=== PATIENT | female | born 1955 | race Two or more races ===

== ENCOUNTER → 2016-06-07 | Outpatient (REF) | payer OTHER ==
[2016-06-08 11:52] LABS: EOS # 0.2 K/mm3 (0.0-0.50); EOS % 4.1 % (0.0-3.0); LARGE UNSTAINED CELL % 0.8 % (0.0-4.0); LYMPH # 0.4 K/mm3 (1.5-4.5); LYMPH % 7.5 % (24.0-44.0); MEAN CORPUSCULAR HEMOGLOBIN 30.5 pg (27.0-33.0); MEAN CORPUSCULAR HGB CONC 33.5 g/dl (32.0-36.5); MEAN CORPUSCULAR VOLUME 90.9 fl (80.0-96.0); MONO # 0.2 K/mm3 (0.0-0.8); NEUTROPHILS # 4.2 K/mm3 (1.8-7.7); NEUTROPHILS % 83.6 % (36.0-66.0); PLATELET COUNT, AUTOMATED 252 k/mm3 (150-450); RED CELL DISTRIBUTION WIDTH 12.4 % (11.5-14.5)
[2016-06-08 12:05] LABS: ALBUMIN 3.4 GM/DL (3.2-5.2); ALBUMIN/GLOBULIN RATIO 1.13 (1.00-1.93); ALKALINE PHOSPHATASE 123 U/L (45-117); ALT/SGPT 28 U/L (12-78); ANION GAP 7 MEQ/L (8-16); AST/SGOT 20 U/L (15-37); BILIRUBIN,TOTAL 0.4 MG/DL (0.2-1.0); BLOOD UREA NITROGEN 15 MG/DL (7-18); CALCIUM LEVEL 8.8 MG/DL (8.5-10.1); CARBON DIOXIDE LEVEL 28 MEQ/L (21-32); CHLORIDE LEVEL 108 MEQ/L (98-107); CREATININE FOR GFR 0.64 MG/DL (0.55-1.02); GLOMERULAR FILTRATION RATE > 60.0 (>51); GLUCOSE, FASTING 90 MG/DL (70-105); POTASSIUM SERUM 4.2 MEQ/L (3.5-5.1); SODIUM LEVEL 143 MEQ/L (136-145); THYROXINE (T4) 11.6 UG/DL (4.5-12.0); TOTAL PROTEIN 6.4 GM/DL (6.4-8.2)
== END ==
LOC: M SFHCCLAY 15:26
PROVIDERS: ATTEND Family Medicine
DX: M25.50 Pain in unspecified joint (principal); Z13.0 Encounter for screening for diseases of the blood and blood-forming organs and certain disorders involving the immune mechanism; Z13.220 Encounter for screening for lipoid disorders; E03.9 Hypothyroidism, unspecified; E55.9 Vitamin D deficiency, unspecified

== ENCOUNTER → 2016-10-28 | Outpatient (REF) | payer OTHER ==
[2016-10-28 14:07] LABS: MEAN CORPUSCULAR HGB CONC 33.4 g/dl (32.0-36.5); MEAN CORPUSCULAR VOLUME 89.6 fl (80.0-96.0); RED CELL DISTRIBUTION WIDTH 13.6 % (11.5-14.5)
[2016-10-28 14:21] LABS: ANION GAP 7 MEQ/L (8-16); BLOOD UREA NITROGEN 15 MG/DL (7-18); CARBON DIOXIDE LEVEL 30 MEQ/L (21-32); CHLORIDE LEVEL 105 MEQ/L (98-107); CREATININE FOR GFR 0.73 MG/DL (0.55-1.02); GLOMERULAR FILTRATION RATE > 60.0 (>51); GLUCOSE, FASTING 82 MG/DL (70-105); POTASSIUM SERUM 4.5 MEQ/L (3.5-5.1); SODIUM LEVEL 142 MEQ/L (136-145)
== END ==
LOC: M LAB REF 08:26
PROVIDERS: ATTEND Orthopaedic Surgery Sports Medicine
DX: M17.0 Bilateral primary osteoarthritis of knee (principal)

== ENCOUNTER → 2017-01-11 | Outpatient (REF) ==
--- NOTE | 2017-01-11 10:38 | REP ---
Clinical: Pain. Technique: Internal rotation, external rotation, and Y view of the right shoulder. Findings: Mild cortical irregularity at the acromioclavicular joint is appreciated along with subtle irregularity and blunting along the inferior portion of the glenoid rim. Decrease subacromial space to approximately 5 mm is suggested on external rotation view. No acute fracture dislocation. Impression: Mild arthritic degenerative changes. Signed by Kwame Rick MD 01/11/2017 10:29 A
--- NOTE | 2017-01-11 10:47 | REP ---
Clinical: Pain and disability. Technique: AP, lateral, bilateral oblique views of the left ankle. Comparison: None. Findings: Postsurgical and post traumatic arthritic degenerative changes are noted throughout the ankle and mid/hind foot. Findings include joint space narrowing. Subchondral sclerosis/irregularities, osteophyte formation and spurring. Surrounding soft tissue swelling is appreciated. Underlying age-related osteopenia and degenerative changes at the metatarsophalangeal joints also identified. No obvious acute fracture or dislocation. Impression: Moderate to advanced arthritic degenerative changes. Signed by Kwame Rick MD 01/11/2017 10:38 A
== END ==
LOC: M SMT 09:40
PROVIDERS: ATTEND Internal Medicine
DX: Z02.71 Encounter for disability determination (principal)

== ENCOUNTER → 2017-02-06 | Outpatient (REF) | payer OTHER ==
[2017-02-06 17:48] LABS: THYROXINE (T4) 10.3 UG/DL (4.5-12.0)
[2017-02-06 17:56] LABS: FOLATE 4.6 NG/ML (>5.4)
[2017-02-06 18:06] LABS: BASO # 0.1 10^3/uL (0.0-0.2); BASO % 1.6 % (0.0-1.0); EOS # 0.4 10^3/uL (0.0-0.50); EOS % 7.6 % (0.0-3.0); IMMATURE GRANULOCYTE % 0.6 % (0-0); LYMPH # 1.6 10^3/uL (1.5-4.5); LYMPH % 31.7 % (24.0-44.0); MEAN CORPUSCULAR HEMOGLOBIN 27.6 pg (27.0-33.0); MEAN CORPUSCULAR HGB CONC 31.9 g/dl (32.0-36.5); MEAN CORPUSCULAR VOLUME 86.5 fl (80.0-96.0); MONO # 0.3 10^3/uL (0.0-0.8); MONO % 6.7 % (0.0-5.0); NEUTROPHILS # 2.5 10^3/uL (1.8-7.7); NEUTROPHILS % 51.8 % (36.0-66.0); PLATELET COUNT, AUTOMATED 312 10^3/uL (150-450); RED CELL DISTRIBUTION WIDTH 13.2 % (11.5-14.5); WHITE BLOOD COUNT 4.9 10^3/uL (4.0-10.0)
== END ==
LOC: M SFHCCLAY 13:12
PROVIDERS: ATTEND Family Medicine
DX: D64.9 Anemia, unspecified (principal); E03.9 Hypothyroidism, unspecified; E55.9 Vitamin D deficiency, unspecified

== ENCOUNTER → 2017-06-17 | Outpatient (CLI) | payer OTHER | LOC: M RAD 10:22 | DX: H92.02 Otalgia, left ear (principal) | CPT/HCPCS: 70480 ==

== ENCOUNTER → 2017-07-28 | Outpatient (REF) | payer OTHER | LOC: M SFHCCLAY 09:19 | DX: E03.9 Hypothyroidism, unspecified (principal) ==

== ENCOUNTER → 2017-11-09 | Outpatient (REF) | payer OTHER ==
[2017-11-09 15:36] LABS: ALBUMIN 3.2 GM/DL (3.2-5.2); ALBUMIN/GLOBULIN RATIO 1.03 (1.00-1.93); ALKALINE PHOSPHATASE 170 U/L (45-117); ALT/SGPT 29 U/L (12-78); ANION GAP 5 MEQ/L (8-16); AST/SGOT 18 U/L (7-37); BILIRUBIN,TOTAL 0.3 MG/DL (0.2-1.0); BLOOD UREA NITROGEN 17 MG/DL (7-18); CALCIUM LEVEL 8.9 MG/DL (8.8-10.2); CARBON DIOXIDE LEVEL 30 MEQ/L (21-32); CHLORIDE LEVEL 108 MEQ/L (98-107); CHOLESTEROL LEVEL 166 MG/DL (<200); CHOLESTEROL RISK RATIO 2.721 (<5); CREATININE FOR GFR 0.77 MG/DL (0.55-1.30); GLOMERULAR FILTRATION RATE > 60.0 (>45); GLUCOSE, FASTING 80 MG/DL (70-100); HDL CHOLESTEROL 61 MG/DL (>40); LDL CHOLESTEROL 86 MG/DL (<100); NON-HDL-C 105 MG/DL; POTASSIUM SERUM 4.3 MEQ/L (3.5-5.1); SODIUM LEVEL 143 MEQ/L (136-145); THYROID STIMULATING HORMONE 0.803 uIU/ML (0.358-3.740); TOTAL PROTEIN 6.3 GM/DL (6.4-8.2); TRIGLYCERIDES LEVEL 97 MG/DL (<150)
== END ==
LOC: M SFHCCLAY 08:37
DX: E03.9 Hypothyroidism, unspecified (principal); Z13.220 Encounter for screening for lipoid disorders
CPT/HCPCS: 84443

== ENCOUNTER 2018-01-28 11:59 | Emergency (ER) | payer OTHER | END 2018-01-28 12:55 | disposition home or self-care (01) | LOC: M ED 11:59 | DX: M25.562 Pain in left knee (principal); Z96.652 Presence of left artificial knee joint; K21.9 Gastro-esophageal reflux disease without esophagitis; Z79.899 Other long term (current) drug therapy | CPT/HCPCS: 73564 ==

== ENCOUNTER → 2018-03-14 | Outpatient (CLI) | payer OTHER ==
[~2018-03-14] MED LIST: ALPR0.5T3 PO; DULO60CA35 PO; ESCI10TA2 PO; FOLI400T PO; GASTROGRAFIN SOLUTION 30ML (Q9963) As Ordered ONE; IBUP-1022 PO; IRON65TA PO; ISOVUE-370 76% 100ML VIAL (Q9967) As Ordered ONE; LEVO125T4 PO; RANI-280 PO; VITA50005 PO; ZOLP10TA2 PO
--- NOTE | 2018-03-15 15:05 | REP ---
Clinical: Epigastric pain. Technique: Axial contrast enhanced images of the abdomen using oral (per protocol) and 100 ml Isovue 370 intravenous contrast material with coronal and sagittal re-formations. Comparison: None. Findings: Lung bases demonstrate mild scattered chronic-appearing changes along with 3 mm and 5.5 mm noncalcified subpleural nodules in the visualized right upper lobe (images 1-3). Visualized portions of the heart and pericardium appear normal. Fatty infiltration to the liver noted without focal hepatic lesion. Evidence for prior cholecystectomy. Spleen, pancreas, bilateral adrenal glands and kidneys are normal. Visualized enteric system is without obstruction or acute inflammatory process. 1 cm fat containing periumbilical hernia noted. No ascites. No adenopathy. No free air. Visualized abdominal aorta and vasculature appears normal and without aneurysm or dissection. Musculoskeletal structures demonstrate age-related degenerative changes. Impression: 1. Two noncalcified subpleural nodules in the visualized right upper lobe warrants contrast enhanced chest CT for follow-up. 2. 1 cm fat containing periumbilical hernia. 3. Hepatic steatosis. Electronically Signed by Kwame Rick MD 03/15/2018 02:57 P
== END ==
LOC: M RAD 08:55
PROVIDERS: ATTEND Family Medicine
DX: R10.13 Epigastric pain (principal); R91.8 Other nonspecific abnormal finding of lung field; K42.9 Umbilical hernia without obstruction or gangrene; K76.0 Fatty (change of) liver, not elsewhere classified
CPT/HCPCS: 74160; Q9963; Q9967

== ENCOUNTER → 2018-03-22 | Outpatient (CLI) | payer OTHER ==
[~2018-03-22] MED LIST changes: -GASTROGRAFIN SOLUTION 30ML (Q9963) As Ordered ONE
--- NOTE | 2018-03-22 22:20 | REP ---
Clinical: Pulmonary nodule. Technique: Axial contrast enhanced images from the thoracic inlet to the upper abdomen with coronal and sagittal re-formations using 100 ml Isovue 370 intravenous contrast material. Findings: 6.5 mm and 2 mm noncalcified nodules in the subpleural right upper lobe (images 47, 49) are identified and remain stable as compared to abdominal CT dated 03/14/2018. Remainder of lung anaya are relatively well aerated and without further consolidation, nodule or mass lesion. No pleural effusion. No pneumothorax. Tracheobronchial tree is patent. Mediastinum demonstrates normal thoracic aorta, pulmonary vasculature and heart/pericardium. No significant adenopathy. Limited evaluation of the upper abdomen demonstrates hepatic steatosis and normal bilateral adrenal glands along with prior cholecystectomy. Impression: 2 mm and 6.5 mm subpleural right upper lobe nodules. No further abnormality appreciated. Consider 6 to 9 month follow-up evaluation. Electronically Signed by Kwame Rick MD 03/22/2018 10:12 P
== END ==
LOC: M RAD 15:48
PROVIDERS: ATTEND Family Medicine
DX: R91.8 Other nonspecific abnormal finding of lung field (principal)
CPT/HCPCS: 71260; Q9967

== ENCOUNTER → 2019-02-28 | Outpatient (REF) | payer OTHER ==
[~2019-02-28] MED LIST changes: -ISOVUE-370 76% 100ML VIAL (Q9967) As Ordered ONE
[2019-02-28 11:49] LABS: BASO # 0.1 10^3/uL (0.0-0.2); BASO % 1.8 % (0.0-1.0); EOS # 0.2 10^3/uL (0.0-0.5); EOS % 4.3 % (0.0-3.0); HEMATOCRIT 47.1 % (36.0-47.0); HEMOGLOBIN 14.8 g/dl (12.0-15.5); LYMPH # 1.6 10^3/uL (1.5-5.0); LYMPH % 36.5 % (24.0-44.0); MEAN CORPUSCULAR HEMOGLOBIN 27.8 pg (27.0-33.0); MEAN CORPUSCULAR HGB CONC 31.4 g/dl (32.0-36.5); MEAN CORPUSCULAR VOLUME 88.4 fl (80.0-96.0); MONO # 0.3 10^3/uL (0.0-0.8); MONO % 7.6 % (0.0-5.0); NEUTROPHILS # 2.2 10^3/uL (1.5-8.5); NEUTROPHILS % 48.9 % (36.0-66.0); PLATELET COUNT, AUTOMATED 255 10^3/uL (150-450); RED BLOOD COUNT 5.33 10^6/uL (4.00-5.40); WHITE BLOOD COUNT 4.5 10^3/uL (4.0-10.0)
[2019-02-28 12:09] LABS: ALBUMIN 3.2 GM/DL (3.2-5.2); ALT/SGPT 22 U/L (12-78); BILIRUBIN,TOTAL 0.3 MG/DL (0.2-1.0); BLOOD UREA NITROGEN 17 MG/DL (7-18); CARBON DIOXIDE LEVEL 27 MEQ/L (21-32); CHLORIDE LEVEL 109 MEQ/L (98-107); CREATININE FOR GFR 0.79 MG/DL (0.55-1.30); GLOMERULAR FILTRATION RATE > 60.0 (>45); GLUCOSE, FASTING 98 MG/DL (70-100); IRON (FE) 54 UG/DL (50-170); POTASSIUM SERUM 4.2 MEQ/L (3.5-5.1); SODIUM LEVEL 144 MEQ/L (136-145); THYROID STIMULATING HORMONE 0.008 uIU/ML (0.358-3.740); TOTAL PROTEIN 6.4 GM/DL (6.4-8.2)
== END ==
LOC: M SFHCCLAY 07:37
PROVIDERS: ATTEND Family Medicine
DX: D64.9 Anemia, unspecified (principal); E03.9 Hypothyroidism, unspecified; R73.01 Impaired fasting glucose

== ENCOUNTER → 2019-03-08 | Outpatient (CLI) | payer OTHER ==
--- NOTE | 2019-03-08 19:02 | REP ---
CT chest without contrast: History: Pulmonary nodule. Comparison chest CT study is from March 22, 2018. CT findings: There are two nodules near each other in the periphery of the right upper lobe anteriorly. These are displayed on today's series 201 axial slice #47 and 45. The larger of these measures 6 mm. It is felt to be unchanged. The smaller is unchanged as well. There is a subpleural nodule in the posterior aspect of the right apex which is visible in retrospect on the prior study and more conspicuous today because of placement. It measures only 3 mm in diameter and is felt to be unchanged as well. No other pulmonary opacity is appreciated. No hilar or mediastinal mass or adenopathy is observed. No adrenal lesion is seen. The gallbladder is surgically absent with clips in the gallbladder fossa. No pleural or pericardial effusion is seen. No bony lesion is seen. Impression: Stable right upper lobe pulmonary nodules unchanged from March 22, 2018. The largest is 6 mm in diameter. A repeat CT study in 1 year with document 2-year stability and should be considered. Electronically Signed by César Laguerre MD 03/09/2019 05:37 A
== END ==
LOC: M RAD 13:55
PROVIDERS: ATTEND Family Medicine
DX: R91.8 Other nonspecific abnormal finding of lung field (principal)

== ENCOUNTER → 2019-11-25 | Outpatient (REF) | payer MEDICARE ==
[2019-11-25 18:17] LABS: THYROID STIMULATING HORMONE < 0.005 uIU/ML (0.358-3.740)
== END ==
LOC: M SFHCCLAY 16:21
PROVIDERS: ATTEND Family Medicine
DX: E03.9 Hypothyroidism, unspecified (principal)

== ENCOUNTER → 2020-05-21 | Outpatient (REF) | payer MEDICARE ==
[~2020-05-21] MED LIST changes: +ESCI10TA16 PO; -ESCI10TA2 PO; -FOLI400T PO; +FOLI400T13 PO
[2020-05-21 16:13] LABS: BASO # 0.1 10^3/uL (0.0-0.2); BASO % 1.9 % (0.0-1.0); EOS # 0.2 10^3/uL (0.0-0.5); EOS % 2.8 % (0.0-3.0); HEMATOCRIT 46.5 % (36.0-47.0); HEMOGLOBIN 15.1 g/dl (12.0-15.5); LYMPH # 1.7 10^3/uL (1.5-5.0); LYMPH % 31.9 % (24.0-44.0); MEAN CORPUSCULAR HEMOGLOBIN 28.3 pg (27.0-33.0); MEAN CORPUSCULAR HGB CONC 32.5 g/dl (32.0-36.5); MEAN CORPUSCULAR VOLUME 87.2 fl (80.0-96.0); MONO # 0.3 10^3/uL (0.0-0.8); MONO % 6.3 % (2.0-8.0); NEUTROPHILS % 56.7 % (36.0-66.0); PLATELET COUNT, AUTOMATED 277 10^3/uL (150-450); RED BLOOD COUNT 5.33 10^6/uL (4.00-5.40); WHITE BLOOD COUNT 5.4 10^3/uL (4.0-10.0)
[2020-05-21 16:32] LABS: HEMOGLOBIN A1c 4.9 %
[2020-05-21 16:51] LABS: ALBUMIN 3.3 GM/DL (3.2-5.2); ALT/SGPT 29 U/L (12-78); BILIRUBIN,TOTAL 0.5 MG/DL (0.2-1.0); BLOOD UREA NITROGEN 12 MG/DL (7-18); CALCIUM LEVEL 9.2 MG/DL (8.8-10.2); CARBON DIOXIDE LEVEL 29 MEQ/L (21-32); CHLORIDE LEVEL 106 MEQ/L (98-107); GLOMERULAR FILTRATION RATE > 60.0 (>45); GLUCOSE, FASTING 89 MG/DL (70-100); MAGNESIUM LEVEL 2.3 MG/DL (1.8-2.4); POTASSIUM SERUM 4.8 MEQ/L (3.5-5.1); SODIUM LEVEL 140 MEQ/L (136-145); THYROID STIMULATING HORMONE < 0.005 uIU/ML (0.358-3.740); THYROXINE (T4) 20.8 UG/DL (4.5-12.0); TOTAL PROTEIN 6.2 GM/DL (6.4-8.2)
[2020-05-21 16:54] LABS: TOTAL T3 129.5 NG/DL (60.0-181.0)
== END ==
LOC: M SFHCCLAY 09:21
PROVIDERS: ATTEND Family Medicine
DX: E03.9 Hypothyroidism, unspecified (principal); R73.01 Impaired fasting glucose; D64.9 Anemia, unspecified; K21.9 Gastro-esophageal reflux disease without esophagitis
CPT/HCPCS: 80053; 83036; 83735; 84436; 84443; 84480; 85025; G0463

== ENCOUNTER → 2020-06-03 | Outpatient (CLI) | payer MEDICARE ==
--- NOTE | 2020-06-03 16:40 | REP ---
INDICATION: PULMONARY NODULE. COMPARISON: Chest CT studies dated 03/22/2018 and 03/08/2019. TECHNIQUE: Chest CT without IV contrast. FINDINGS: There is a 3 mm lung nodule posteromedially in the right upper lobe on image 27, unchanged from both prior studies. There is a 2 mm lung nodule anterolaterally in the right upper lobe on image 45, unchanged from both prior studies. There is a 6 mm pleural-based lung nodule anterior laterally in the right upper lobe on image 47, unchanged from both prior studies. There are no new lung nodules. There are no enlarging lung nodules. There are no infiltrates or pleural effusions. There is no mediastinal or axillary lymphadenopathy. In the absence of IV contrast the study is insensitive for hilar adenopathy. The unenhanced thoracic aorta is unremarkable. Cardiac size normal. No pericardial effusion. Within the visualized upper abdomen there is no adrenal nodule or mass. There are surgical clips in the gallbladder fossa. IMPRESSION: There are 3 stable lung nodules as described. There are no new lung nodules. There are no enlarging lung nodules. No adenopathy, infiltrate or effusion. Cholecystectomy. <Electronically signed by Ok Colindres > 06/03/20 2163
== END ==
LOC: M RAD 15:29
PROVIDERS: ATTEND Family Medicine
DX: R91.1 Solitary pulmonary nodule (principal)

== ENCOUNTER → 2021-05-25 | Outpatient (REF) | payer MEDICARE ==
[2021-05-25 16:36] LABS: BASO # 0.1 10^3/uL (0.0-0.2); BASO % 1.1 % (0.0-1.0); EOS # 0.1 10^3/uL (0.0-0.5); EOS % 1.7 % (0.0-3.0); HEMATOCRIT 48.2 % (36.0-47.0); HEMOGLOBIN 16.1 g/dl (12.0-15.5); LYMPH # 1.7 10^3/uL (1.5-5.0); LYMPH % 26.2 % (24.0-44.0); MEAN CORPUSCULAR HEMOGLOBIN 28.8 pg (27.0-33.0); MEAN CORPUSCULAR HGB CONC 33.4 g/dl (32.0-36.5); MEAN CORPUSCULAR VOLUME 86.2 fl (80.0-96.0); MONO # 0.4 10^3/uL (0.0-0.8); MONO % 5.6 % (2.0-8.0); NEUTROPHILS # 4.3 10^3/uL (1.5-8.5); NEUTROPHILS % 64.8 % (36.0-66.0); PLATELET COUNT, AUTOMATED 300 10^3/uL (150-450); RED BLOOD COUNT 5.59 10^6/uL (4.00-5.40); WHITE BLOOD COUNT 6.6 10^3/uL (4.0-10.0)
[2021-05-25 17:21] LABS: ALBUMIN 3.5 GM/DL (3.2-5.2); ALT/SGPT 43 U/L (12-78); BILIRUBIN,TOTAL 0.7 MG/DL (0.2-1.0); BLOOD UREA NITROGEN 13 MG/DL (7-18); CALCIUM LEVEL 9.3 MG/DL (8.8-10.2); CARBON DIOXIDE LEVEL 28 MEQ/L (21-32); CHLORIDE LEVEL 107 MEQ/L (98-107); CHOLESTEROL LEVEL 164 MG/DL (<200); CHOLESTEROL RISK RATIO 2.411 (<5); CREATININE FOR GFR 0.75 MG/DL (0.55-1.30); GLOMERULAR FILTRATION RATE > 60.0 (>45); GLUCOSE, FASTING 94 MG/DL (70-100); HDL CHOLESTEROL 68 MG/DL (>40); IRON (FE) 126 UG/DL (50-170); LDL CHOLESTEROL 81 MG/DL (<100); MAGNESIUM LEVEL 2.2 MG/DL (1.8-2.4); NON-HDL-C 96 MG/DL; POTASSIUM SERUM 4.8 MEQ/L (3.5-5.1); SODIUM LEVEL 142 MEQ/L (136-145); THYROID STIMULATING HORMONE < 0.005 uIU/ML (0.358-3.740); TOTAL PROTEIN 6.5 GM/DL (6.4-8.2); TRIGLYCERIDES LEVEL 75 MG/DL (<150)
== END ==
LOC: M SFHCCLAY 11:02
PROVIDERS: ATTEND Family Medicine
DX: E03.9 Hypothyroidism, unspecified (principal); K21.9 Gastro-esophageal reflux disease without esophagitis; D64.9 Anemia, unspecified; R73.01 Impaired fasting glucose

== ENCOUNTER → 2021-08-05 | Outpatient (CLI) | payer MEDICARE | LOC: M CLY 08:36 | PROVIDERS: ATTEND Family Medicine | DX: R07.81 Pleurodynia (principal); E03.9 Hypothyroidism, unspecified ==

== ENCOUNTER → 2021-08-05 | Outpatient (REF) | payer MEDICARE ==
[2021-08-05 11:46] LABS: THYROID STIMULATING HORMONE 0.022 uIU/ML (0.358-3.740)
== END ==
LOC: M SFHCCLAY 08:02
PROVIDERS: ATTEND Family Medicine
DX: E03.9 Hypothyroidism, unspecified (principal)

== ENCOUNTER → 2021-12-29 | Outpatient (REF) | payer MEDICARE ==
[2021-12-29 19:09] LABS: FREE T4 1.91 NG/DL (0.76-1.46); THYROID STIMULATING HORMONE 0.028 uIU/ML (0.358-3.740)
[2021-12-29 20:21] LABS: TOTAL T3 95.8 NG/DL (60.0-181.0)
== END ==
LOC: M SFHCCLAY 09:24
PROVIDERS: ATTEND Family Medicine
DX: E03.9 Hypothyroidism, unspecified (principal); M25.511 Pain in right shoulder; M19.011 Primary osteoarthritis, right shoulder

== ENCOUNTER → 2021-12-29 | Outpatient (CLI) | payer MEDICARE | LOC: M CLY 09:29 | PROVIDERS: ATTEND Family Medicine | DX: M25.511 Pain in right shoulder (principal) ==

== ENCOUNTER → 2021-12-29 | Outpatient (CLI) | payer MEDICARE | LOC: M CLY 09:39 | PROVIDERS: ATTEND Family Medicine | DX: M25.511 Pain in right shoulder (principal) ==

== ENCOUNTER → 2021-12-29 | Outpatient (CLI) | payer MEDICARE | LOC: M CLY 09:44 | PROVIDERS: ATTEND Family Medicine | DX: M25.511 Pain in right shoulder (principal); M19.011 Primary osteoarthritis, right shoulder ==

== ENCOUNTER → 2022-03-04 | Outpatient (REF) | payer MEDICARE ==
[2022-03-04 18:21] LABS: FREE T4 1.5 NG/DL (0.89-1.76); THYROID STIMULATING HORMONE 0.206 uIU/ML (0.55-4.78)
== END ==
LOC: M SFHCCLAY 09:24
PROVIDERS: ATTEND Family Medicine
DX: E03.9 Hypothyroidism, unspecified (principal)

== ENCOUNTER → 2022-03-26 | Outpatient (CLI) | payer MEDICARE | LOC: M RAD 14:34 | PROVIDERS: ATTEND Family Medicine | DX: M25.511 Pain in right shoulder (principal); S46.811A Strain of other muscles, fascia and tendons at shoulder and upper arm level, right arm, initial encounter; X58.XXXA Exposure to other specified factors, initial encounter; Y92.9 Unspecified place or not applicable; Y93.9 Activity, unspecified; Y99.9 Unspecified external cause status; M75.81 Other shoulder lesions, right shoulder; M75.51 Bursitis of right shoulder ==

== ENCOUNTER → 2022-07-18 | Outpatient (REF) | payer MEDICARE ==
[2022-07-18 17:25] LABS: HEMATOCRIT 45.1 % (36.0-47.0); HEMOGLOBIN 14.7 g/dl (12.0-15.5); MEAN CORPUSCULAR HEMOGLOBIN 29.3 pg (27.0-33.0); MEAN CORPUSCULAR HGB CONC 32.6 g/dl (32.0-36.5); PLATELET COUNT, AUTOMATED 281 10^3/uL (150-450); RED BLOOD COUNT 5.01 10^6/uL (4.00-5.40); WHITE BLOOD COUNT 6.5 10^3/uL (4.0-10.0)
[2022-07-18 17:44] LABS: HEMOGLOBIN A1c 4.9 % (4.0-6.0)
[2022-07-18 17:49] LABS: FREE T4 1.42 NG/DL (0.89-1.76); THYROID STIMULATING HORMONE 1.329 uIU/ML (0.55-4.78)
[2022-07-18 17:51] LABS: ALBUMIN 3.3 G/DL (3.2-5.2); ALKALINE PHOSPHATASE 126 U/L (46-116); ALT/SGPT 31 U/L (7.0-40); AST/SGOT 26 U/L (<34); BILIRUBIN,TOTAL 0.6 MG/DL (0.3-1.2); BLOOD UREA NITROGEN 17 MG/DL (9-23); CALCIUM LEVEL 9.3 MG/DL (8.3-10.6); CARBON DIOXIDE LEVEL 29 MMOL/L (20-31); CHLORIDE LEVEL 104 MMOL/L (98-107); CREATININE FOR GFR 0.77 MG/DL (0.55-1.30); GLOMERULAR FILTRATION RATE > 60.0 (>45); GLUCOSE, FASTING 84 MG/DL (74-106); IRON (FE) 70 UG/DL (50-170); MAGNESIUM LEVEL 1.9 MG/DL (1.8-2.4); POTASSIUM SERUM 4.8 MMOL/L (3.5-5.1); SODIUM LEVEL 139 MMOL/L (136-145); TOTAL PROTEIN 6.1 G/DL (5.7-8.2)
== END ==
LOC: M SFHCCLAY 13:34
PROVIDERS: ATTEND Family Medicine
DX: E03.9 Hypothyroidism, unspecified (principal); R03.0 Elevated blood-pressure reading, without diagnosis of hypertension; R73.01 Impaired fasting glucose; D64.9 Anemia, unspecified; K21.9 Gastro-esophageal reflux disease without esophagitis

== ENCOUNTER → 2022-07-18 | Outpatient (CLI) | payer MEDICARE | LOC: M CLY 13:58 | PROVIDERS: ATTEND Family Medicine | DX: M85.88 Other specified disorders of bone density and structure, other site (principal); M47.816 Spondylosis without myelopathy or radiculopathy, lumbar region ==

== ENCOUNTER → 2022-08-26 | Outpatient (CLI) | payer MEDICARE | LOC: M PLAIMG 09:59 | PROVIDERS: ATTEND Family Medicine | DX: G44.52 New daily persistent headache (NDPH) (principal) ==

== ENCOUNTER → 2022-09-28 | Outpatient (CLI) | payer MEDICARE ==
[~2022-09-28] MED LIST changes: +ISOVUE-370 76% 100ML VIAL As Ordered ONE
== END ==
LOC: M RAD 08:04
PROVIDERS: ATTEND Family Medicine
DX: I73.9 Peripheral vascular disease, unspecified (principal)
CPT/HCPCS: 73706; Q9967

== ENCOUNTER → 2023-08-14 | Outpatient (REF) | payer MEDICARE ==
[~2023-08-14] MED LIST changes: -ISOVUE-370 76% 100ML VIAL As Ordered ONE
[2023-08-14 18:06] LABS: HEMATOCRIT 47.5 % (36.0-47.0); HEMOGLOBIN 15.3 g/dl (12.0-15.5); MEAN CORPUSCULAR HGB CONC 32.2 g/dl (32.0-36.5); MEAN CORPUSCULAR VOLUME 90.1 fl (80.0-96.0); PLATELET COUNT, AUTOMATED 286 10^3/uL (150-450); RED BLOOD COUNT 5.27 10^6/uL (4.00-5.40); WHITE BLOOD COUNT 6.1 10^3/uL (4.0-10.0)
[2023-08-14 18:20] LABS: HEMOGLOBIN A1c 4.9 % (4.0-6.0)
[2023-08-14 18:22] LABS: THYROID STIMULATING HORMONE 1.333 uIU/ML (0.55-4.78)
[2023-08-14 18:24] LABS: FREE T4 1.43 NG/DL (0.89-1.76)
[2023-08-14 18:25] LABS: IRON (FE) 71 UG/DL (50-170)
[2023-08-14 18:26] LABS: ALBUMIN 3.3 G/DL (3.2-5.2); ALKALINE PHOSPHATASE 131 U/L (46-116); ALT/SGPT 25 U/L (7.0-40); AST/SGOT 18 U/L (<34); BILIRUBIN,TOTAL 0.5 MG/DL (0.3-1.2); BLOOD UREA NITROGEN 19 MG/DL (9-23); CALCIUM LEVEL 9.3 MG/DL (8.3-10.6); CARBON DIOXIDE LEVEL 29 MMOL/L (20-31); CHLORIDE LEVEL 106 MMOL/L (98-107); CHOLESTEROL LEVEL 161 MG/DL (<200); CHOLESTEROL RISK RATIO 2.48 (<5); GLOMERULAR FILTRATION RATE > 60.0 (>45); GLUCOSE, FASTING 97 MG/DL (74-106); HDL CHOLESTEROL 64.8 MG/DL (>40); MAGNESIUM LEVEL 2.1 MG/DL (1.8-2.4); NON-HDL-C 96.2 MG/DL; POTASSIUM SERUM 5.7 MMOL/L (3.5-5.1); SODIUM LEVEL 140 MMOL/L (136-145); TOTAL PROTEIN 6.4 G/DL (5.7-8.2); TRIGLYCERIDES LEVEL 81 MG/DL (<150)
== END ==
LOC: M SFHCCLAY 09:04
PROVIDERS: ATTEND Family Medicine
DX: R73.01 Impaired fasting glucose (principal); E03.9 Hypothyroidism, unspecified; K21.9 Gastro-esophageal reflux disease without esophagitis; D64.9 Anemia, unspecified

== ENCOUNTER → 2024-09-14 | Outpatient (CLI) | payer MEDICARE | LOC: M RAD 10:47 | PROVIDERS: ATTEND Family Medicine | DX: M25.562 Pain in left knee (principal) ==

== ENCOUNTER 2025-02-24 13:00 | Emergency (ER) | payer MEDICARE, MEDICAID ==
[~2025-02-24] VITALS: Ht 157.5 cm; Wt 149.6 kg
[~2025-02-24 13:00] MED LIST changes: -IBUP-1022 PO; +IBUP600T42 PO; +ZOLP10TA11 PO; -ZOLP10TA2 PO
[2025-02-24 17:27] LABS: BASO # 0.0 10^3/uL (0.0-0.2); BASO % 1.0 % (0.0-1.0); EOS # 0.0 10^3/uL (0.0-0.5); EOS % 0.3 % (0.0-3.0); LYMPH # 1.1 10^3/uL (1.5-5.0); LYMPH % 37.0 % (24.0-44.0); MONO # 0.3 10^3/uL (0.0-0.8); MONO % 10.9 % (2.0-8.0); NEUTROPHILS # 1.5 10^3/uL (1.5-8.5); NEUTROPHILS % 50.8 % (36.0-66.0); PLATELET COUNT, AUTOMATED 237 10^3/uL (150-450)
[2025-02-24] MEDS: KETOROLAC 30 MG/ML 1 ML VIAL IV ONE (17:45)
[2025-02-24] MEDS: ACETAMINOPHEN *IV* 1,000 MG in IV 1 EA IV ONE (17:45)
[2025-02-24] MEDS: ONDANSETRON 4MG/2ML VIAL IV ONE (17:46)
[2025-02-24 17:49] LABS: CALCIUM LEVEL 8.1 MG/DL (8.3-10.6); CARBON DIOXIDE LEVEL 26 MMOL/L (20-31); CHLORIDE LEVEL 104 MMOL/L (98-107); CK-MB VALUE MASS < 1.0 NG/ML (<3.6); CREATININE FOR GFR 0.77 MG/DL (0.55-1.30); GLOMERULAR FILTRATION RATE 84.0 (>45); POTASSIUM SERUM 3.3 MMOL/L (3.5-5.1); SODIUM LEVEL 142 MMOL/L (136-145)
[2025-02-24 17:50] LABS: CPK CREATINE PHOSPHOKINASE 50 U/L (34-145)
[2025-02-24] MEDS ORDERED: ISOVUE-370 76% 100 ML VIAL As Ordered ONE (19:06)
[2025-02-24 19:16] LABS: CK-MB VALUE MASS 1.0 NG/ML (<3.6)
[2025-02-24 19:17] LABS: ALT/SGPT 79 U/L (7.0-40); AST/SGOT 87 U/L (<34)
[2025-02-24 19:17] LABS: CPK CREATINE PHOSPHOKINASE 50.0 U/L (34-145); MB/CK RELATIVE INDEX 2.0 (< OR =4)
[2025-02-24] MEDS: NS (Normal Saline) 0.9% 1,000 ML IV ONE (19:37)
[2025-02-24 21:43] LABS: CK-MB VALUE MASS < 1.0 NG/ML (<3.6)
[2025-02-24 21:49] LABS: CPK CREATINE PHOSPHOKINASE 45 U/L (34-145)
[2025-02-25 00:01] VITALS: BP 134/82; TEMP 98.9; O2SAT 94
== END 2025-02-25 00:06 | disposition home or self-care (01) ==
LOC: EDBD 13:00 → M ED 13:00
DX: J09.X2 Influenza due to identified novel influenza A virus with other respiratory manifestations (principal); E03.9 Hypothyroidism, unspecified; F12.10 Cannabis abuse, uncomplicated; Z79.899 Other long term (current) drug therapy
CPT/HCPCS: 71045; 74177; 80047; 80048; 80076; 82550; 82553; 83605; 83690; 84484; 85025; 87486; 87581; 87633; 87798; 93005; 93041; 94760; 96361; 96365; 96375; 99285; J0134; J1885; J2405; J2765; Q9967